=== PATIENT | female | born 2000 | race Caucasian/White ===

== ENCOUNTER 2019-08-01 22:56 | Emergency (ER) | payer OTHER, SELFPAY ==
[2019-08-01 22:57] VITALS: BP 127/61; PULSE 90; RESP 18; TEMP 36.8; O2SAT 100; BMI 21.3
--- NOTE | 2019-08-01 23:19 | ED.VISSUMM ---
- ER Visit Summary Date of Service: 08/01/19 Chief Complaint: Abdominal pain and cramping History of Present Illness: The patient is a 18 F who presents with abdominal pain and cramping the has been constant for the past 1 to 2 hours. Patient states it has been waxing and waning over the past couple days. Patient states her last menstrual period started 5 days ago and is she is currently on her menstrual period. Patient describes her pain as cramping. Patient states nothing makes it better or worse. Patient admits to nausea but denies any vomiting. Patient denies any diarrhea, melena, or hematochezia. Patient denies any dysuria or hematuria. Physical Examination: Vital signs are stable. Patient is afebrile. Patient is in no acute distress. Oral mucosa is pink and moist. Neck is supple. Trachea is midline. There is no JVD. Heart was regular rate and rhythm. Lungs are clear and equal bilaterally. Abdomen is soft. Bowel sounds are normal. There is some mild tenderness over the lower abdomen. There is no rebound or guarding noted. Cranial nerves II through XII are intact. There are no focal motor or sensory deficits noted. Test Results: CBC and comprehensive metabolic profile were obtained and were essentially within normal limits. Serum hCG was negative. Urinalysis shows leukocyte esterase of 25 with occult blood of 150. There are 5-10 red blood cells but no sign of urinary tract infection. Emergency Department Course and Treatment: Patient was given IV fluids. Patient was given a dose of Toradol here. Patient states her pain improved somewhat but was still having some pain. Patient was given a dose of morphine. Patient was instructed to follow-up with her DEVELOPMENT SPECIALIST or primary care physician in 3 to 5 days. Patient was given a prescription for Naprosyn. Patient was instructed to return if worse in any way. Patient understood and was agreeable with the plan. All questions were answered. Disposition: Discharge home Impression: Pelvic pain This note was generated with [employer] dictation software. It may contain incorrect words, spelling, and punctuation that were not noted in review of the chart prior to signing ED Disposition - Plan for ED Patient: Disposition: Home or Assisted Living Diagnosis: Pelvic pain Instructions: ABDOMINAL PAIN, Unknown Cause, (Female) Prescriptions: Naproxen [Naprosyn] 500 mg PO BID PRN #20 tab Prescription Printed Referrals: Derick Coyne MD [Primary Care Provider] - 3-5 Days
[2019-08-01] MEDS: Ketorolac 30 MG/ML Syringe IV (23:29)
[2019-08-01 23:50] LABS: Internal QC Validated? YES +Cl - CLEAR BKGD
[2019-08-01 23:51] LABS: Pregnancy, Serum, hCG Quali. NEGATIVE Negative
[2019-08-01 23:54] LABS: ALB/GLOB Ratio 0.9 RATIO (0.9-2.4); AST(SGOT) 18 U/L (15-37); Alanine Aminotransfer ALT/SGPT 23 U/L (13-56); Albumin, Serum 3.6 g/dL (3.2-5.0); Alkaline Phosphatase 67 U/L (45-117); Anion Gap 6 (5-15); BUN 14 mg/dL (7-18); Chloride 109 mmol/L (98-107); Creatinine, Serum 0.88 mg/dL (0.55-1.02); EST Glomerular Filtration Rate 87 mL/min (>60); Est Glom Filt Rate - Afr Amer 105 mL/min (>60); Estimated Creatinine Clearance 88.06 ml/min; Globulin 3.8 g/dL (2.2-4.2); Glucose 75 mg/dL (74-106); Lipase 210 U/L (73-393); Potassium 3.5 mmol/L (3.5-5.1); Protein, Total 7.4 g/dL (6.4-8.2); Sodium Level 142 mmol/L (136-145)
[2019-08-02 00:18] LABS: Absolute Lymphocyte Count 3.51 X10^3/uL (0.83-4.51); Absolute Neutrophil Count 2.5 X10^3/uL (2.0-7.7); Basophil# 0.04 X10^3/uL; Basophil% 0.6 % (0-1); Eosinophil# 0.12 X10^3/uL; Eosinophils% 1.8 % (0-5); Hematocrit 39.5 % (37-47); Hemoglobin 12.5 g/dL (12.0-15.0); Lymphocyte # 3.51 X10^3/ul (4.0); Mean Corp Hgb Conc 31.6 g/dL (32-36); Mean Corpuscular Hgb 27.4 pg (27.0-32.0); Mean Corpuscular Volume 86.6 fL (81-99); Mean Platelet Vol. 10.5 fl (6.2-12.0); Monocyte% 7.4 % (0-10); NRBC Flagged by Analyzer 0 % (0-5); Neutrophil # 2.53 X10^3/uL (2.7-7.7); Neutrophil % 37.5 % (47-70); Platelet Count 368 K/mm3 (150-450); RBC Distribution Width CV 13.8 % (11.6-14.6); RBC Distribution Width SD 43.2 fl (35.1-43.9); Red Blood Count 4.56 M/mm3 (4.2-5.4); White Blood Count 6.8 K/mm3 (4.4-11.0)
[2019-08-02 00:51] LABS: Bacteria 0 SEEN /hpf (None Seen); Mucous, Urine 0 SEEN /hpf (<or=2+); Squamous Epithelial Cells - UA 0 SEEN /hpf (5-10)
[2019-08-02 00:53] LABS: Color, Urine Yellow (Yellow); Glucose, Dipstick Normal (Normal); Ketone-Dipstick Negative (Negative); Leukocyte Esterase-Dipstick 25 /ul (Negative); Nitrite-Dipstick Negative (Negative); Occult Blood-Urine 150 /ul (Negative); Protein-Dipstick 15 mg/dl (Negative); Urine Bilirubin Dipstick Negative (Negative); Urine Clarity Sl. Cloudy (Clear); Urine Urobilinogen 1 mg/dl (Normal)
[2019-08-02 01:02] VITALS: RESP 16
[2019-08-02 01:17] LABS: Red Blood Cells-Urine 5-10 SEEN /hpf (0-5); White Blood Cells 0-5 SEEN /hpf (0-5)
[2019-08-02 01:34] VITALS: BP 131/91; PULSE 69; RESP 15; O2SAT 99
[2019-08-02] MEDS: Morphine 4 MG/ML Syringe IV (01:34)
[2019-08-02 01:59] VITALS: PULSE 69; RESP 15; O2SAT 99
== END 2019-08-02 02:01 | disposition home or self-care (01) ==
PROVIDERS: Emergency Provider Emergency Medicine; PCP Family Medicine
DX: R10.2 Pelvic and perineal pain (principal)
CPT/HCPCS: 80053; 81001; 83690; 84703; 85025; 96374; 96375; 99283; J7040; A4216

== ENCOUNTER → 2019-08-04 16:30 | Outpatient (CLI) | payer OTHER, SELFPAY ==
[2019-08-01 22:57] VITALS: BMI 21.3
--- NOTE | 2019-08-04 16:35 | US_ITS ---
STUDY: ULTRASOUND OF THE FEMALE PELVIS - COMPLETE REASON FOR EXAM: Female, 18 years old. LLQ PAIN LMP: TECHNIQUE: Transabdominal and transvaginal TECHNICAL QUALITY: Adequate. COMPARISON: None. FINDINGS: The uterus is anteverted and is in a midline position. The uterus is septate measures 6.6 x 5.2 x 2.7 cm. Normal uterine cervix. The endometrium measures 3 mm in thickness, and is hyperechoic. There is no demonstrated endometrial mass. There is no demonstrated myometrial mass. I.U.D. - The patient does not have an I.U.D. The right ovary is visualized. The right ovary measures 3.6 x 2.5 x 2.3 cm. There is no right ovarian cyst or ovarian mass. There is no visualized right adnexal mass or complex lesion. There is normal arterial and normal venous vascularity. The left ovary is visualized. The left ovary measures 3.6 x 2.7 x 2 cm. There is no left ovarian cyst or ovarian mass. There is no visualized left adnexal mass or complex lesion. There is normal arterial and normal venous vascularity. There is mild fluid in the cul-de-sac. The pre void volume of the bladder was 639 ml. US/Pelvic (Non ) IMPRESSION: Mild fluid in cul-de-sac possibly due to recent ovulation. Otherwise normal pelvic sonogram Electronically Signed: Thanh Leal MD at 19:43 EDT , Service support ,
--- NOTE | 2019-08-04 16:36 | US_ITS ---
STUDY: ULTRASOUND OF THE FEMALE PELVIS - COMPLETE REASON FOR EXAM: Female, 18 years old. LLQ PAIN LMP: TECHNIQUE: Transabdominal and transvaginal TECHNICAL QUALITY: Adequate. COMPARISON: None. FINDINGS: The uterus is anteverted and is in a midline position. The uterus is septate measures 6.6 x 5.2 x 2.7 cm. Normal uterine cervix. The endometrium measures 3 mm in thickness, and is hyperechoic. There is no demonstrated endometrial mass. There is no demonstrated myometrial mass. I.U.D. - The patient does not have an I.U.D. The right ovary is visualized. The right ovary measures 3.6 x 2.5 x 2.3 cm. There is no right ovarian cyst or ovarian mass. There is no visualized right adnexal mass or complex lesion. There is normal arterial and normal venous vascularity. The left ovary is visualized. The left ovary measures 3.6 x 2.7 x 2 cm. There is no left ovarian cyst or ovarian mass. There is no visualized left adnexal mass or complex lesion. There is normal arterial and normal venous vascularity. There is mild fluid in the cul-de-sac. The pre void volume of the bladder was 639 ml. US/Transvaginal Non- IMPRESSION: Mild fluid in cul-de-sac possibly due to recent ovulation. Otherwise normal pelvic sonogram Electronically Signed: Thanh Leal MD at 19:43 EDT , Service support ,
== END ==
PROVIDERS: PCP Family Medicine; Referring Provider Nurse Practitioner Family; Visit Provider Nurse Practitioner Family
DX: R10.2 Pelvic and perineal pain (principal)
CPT/HCPCS: 76830; 76856; 93976

== ENCOUNTER 2019-10-13 09:02 | Emergency (ER) | payer OTHER, SELFPAY ==
[2019-10-13 09:03] VITALS: BP 121/96; PULSE 102; RESP 16; TEMP 36.4; O2SAT 100; BMI 21.9
--- NOTE | 2019-10-13 09:16 | ED.VIS.GEN ---
History of Present Illness Chief Complaint: Head Injury Narrative: Patient is a 19-year-old female who presents for evaluation of a head injury. On Friday, 3 days ago she slipped on something on the floor and fell and hit the right side of her head. No loss of consciousness. No vomiting. She does have a history of prior concussions. Last night she had a headache and some nausea. Her nausea is actually resolved and currently she only complains of a mild headache. She called her primary care physician's office however as this was work-related was advised to be evaluated here. She otherwise denies recent illness. No fevers or cough. Past Medical History - Allergies and Home Meds Allergies/Adverse Reactions: Allergies No Known Allergies Allergy (Verified 10/13/19 09:02) Primary Care Physician: Derick Coyne MD [Primary Care Provider] - Past Medical History: None Smoking Status: Current every day smoker Review of Systems All systems negative except as indicated General: Denies: Fever Eyes: Reports: - - Light sensitivity. Denies: Visual changes - bilaterally ENT: Reports: - - Sound sensitivity Cardiovascular: Denies: Chest pain Respiratory: Denies: Dyspnea Gastrointestinal: Reports: Nausea. Denies: Abdominal pain, Vomiting Musculoskeletal: Denies: Myalgias Skin: Denies: Rash Neurological: Reports: Headache Physical Exam Vital Signs/Narrative: Vital Signs Temp Pulse Resp BP Pulse Ox 10/13/19 09:03 97.6 F L 102 H 16 121/96 H 100 Inital Vital Signs reviewed: Yes General: Well nourished Head: Normocephalic, - - No obvious signs of head trauma such as lacerations contusions abrasions hematoma. No raccoon eyes. No coyle sign. ENT: - - No hemotympanum Neck: Supple Cardiovascular: Regular rate Respiratory: No distress, CTA bilaterally Abdomen: Soft Skin: Normal color Neurological: Alert, Oriented x3, - - GCS of 15 with no focal or lateralizing neurological deficits. Psychological: Normal affect Diagnostic/Tx/Re-eval - Medical Decision Making Patient is young and otherwise healthy. She is not anticoagulated. Currently she only complains of mild headache. Her head injury was several days ago. She has no focal or lateralizing neurological deficits. At this point I feel significant injury such as skull fracture or intracranial hemorrhage is very unlikely and radiation risk of CT imaging likely outweighs benefit. Her symptoms are consistent with concussion. She was advised on brain rest. She understands to return for new or worsening symptoms and was advised on signs and symptoms to monitor for and was discharged home. ED Disposition - Plan for ED Patient: Disposition: Home or Assisted Living Diagnosis: Closed head injury Instructions: ED Concussion Referrals: Derick Coyne MD [Primary Care Provider] -
--- NOTE | 2019-10-13 09:32 | ED.RN ---
DISCHARGE INSTRUCTIONS GIVEN TO AND REVIEWED WITH PATIENT, PATIENT DENIES QUESTIONS OR CONCERNS AND VOICES UNDERSTANDING OF DISCHARGE INSTRUCTIONS. PT REFERRED TO [facility] FOR POST ACCIDENT DRUG SCREENING. PT AMBULATES OUT OF ROOM WITHOUT DIFFICULTY.
== END 2019-10-13 09:38 | disposition home or self-care (01) ==
LOC: ED 09:36
PROVIDERS: Emergency Provider Emergency Medicine; PCP Family Medicine
DX: S09.90XA Unspecified injury of head, initial encounter (principal); W01.0XXA Fall on same level from slipping, tripping and stumbling without subsequent striking against object, initial encounter; Z87.820 Personal history of traumatic brain injury; F17.210 Nicotine dependence, cigarettes, uncomplicated
CPT/HCPCS: 99282

== ENCOUNTER 2019-12-29 00:43 | Emergency (ER) | payer OTHER, SELFPAY ==
[2019-11-05 06:30] VITALS: BMI 21.9
[2019-12-29 00:44] VITALS: PULSE 95; RESP 16; TEMP 37; O2SAT 100; BMI 22.1
[2019-12-29 00:56] LABS: Bedside Glucose 83 mg/dL (70-110)
--- NOTE | 2019-12-29 01:00 | EKG12_ITS ---
Test Reason : NUMB/TING Blood Pressure : / mmHG Vent. Rate : 068 BPM Atrial Rate : 068 BPM P-R Int : 152 ms QRS Dur : 080 ms QT Int : 390 ms P-R-T Axes : 051 079 061 degrees QTc Int : 414 ms Normal sinus rhythm with sinus arrhythmia Normal ECG Confirmed by CONTRERAS GARCIA, SHARON ([id number]), fan mail editor GERI BORJA ([id number]) on 01/03/2020 9:20:14 AM Referred By: LUKASZ Confirmed By:SHARON CHAIREZ MD
--- NOTE | 2019-12-29 01:00 | CT_ITS ---
HISTORY: LT ARM AND JAW NUMBNESS/TINGLING, BLURRED VISION LT EYE ADDITIONAL HISTORY: None provided. COMPARISON: None EXAMINATION/TECHNIQUE: CT Head or Brain W/O Contrast Injection. Axial, coronal and sagittal images. Number of images including paperwork: 228. A radiation dose optimization technique was used for this scan. FINDINGS: BRAIN: No acute hemorrhage or mass. No definite acute infarct; MRI more sensitive. VENTRICULAR SYSTEM: No hydrocephalus. PARANASAL SINUSES AND MASTOIDS: No air-fluid level in the imaged extent. ORBITS: Unremarkable imaged extent. SKELETON AND SOFT TISSUES: Calvarium intact. ASPECTS score: Not applicable. CT/Brain/Head without Contrast IMPRESSION: No acute intracranial abnormality. Individualized dose optimization techniques were used for this CT. at 0153 Reported and signed by: Jacqueline Gallardo MD Electronically Signed: Jacqueline Gallardo MD at 1:53 EDT Tel , Service support ,
--- NOTE | 2019-12-29 01:01 | ED.VIS.HA ---
History of Present Illness Chief Complaint: Numb/Ting Informant: Patient Onset: Hours - 1 Context: Gradual, Onset, Activity - at work, [employer], grilling food Quality: Dull Location: right parietal Current Severity: Gone Maximum Severity: Mild Worsened by: n/a Relieved by: nothing in particular Associated Symptoms: Tingling, Preceding Aura - possibly -- see below, Visual Changes. Negative for: Nausea, Vomiting Injury: - - no injury Narrative: Patient is a healthy 19-year-old who was at work tonight when suddenly she started having vision disturbance in her left field of vision, both eyes. Things looked blurry and squiggly, and then eventually she lost vision in her left visual sales. She then started feeling numbness and tingling on the left lower face, and it went down into her left upper extremity, the distal half of it from the elbow down into the fingers. She did not notice any weakness, but she had stopped doing what she was doing, and told her scrum project manager who asked her to sit down, eventually an ambulance was called to bring her to the hospital. She states when walking to the ambulance, she noticed that she was limping a little but she does not remember feeling any numbness in her leg. She states that she then started getting a right parietal headache during all of that, which is resolved now. The rest of her symptoms are all improved, her vision is back to normal, and the only residual symptoms that she has right now is tingling in the left lower face. She developed no nausea or vomiting, chest pain, palpitations, syncope. No recent illnesses or injuries. No alcohol or drug use tonight. Patient presents during the national coronavirus emergency declaration/pandemic. She denies any known contact with anyone infected with COVID-19. She denies traveling out of the immediate area recently. She also denies being diagnosed with COVID-19 at any point in time. She is currently wearing a mask and wears one at work. She has had prior episodes of this numbness/tingling. It has occurred a couple times, and has been on the left lower face just like this, but without any of the other symptoms including headache. She has never been diagnosed with migraine headaches. Past Medical History - Allergies and Home Meds Allergies/Adverse Reactions: Allergies No Known Allergies Allergy (Verified 12/29/19 00:49) Primary Care Physician: Derick Coyne MD [Primary Care Provider] - Past Medical History: None Smoking Status: Current every day smoker Drugs: None Review of Systems General: Denies: Chills, Fever, Sweats Eyes: Reports: Visual changes - left. Denies: Diplopia ENT: Reports: - - No loss of taste or smell. Denies: Bilateral ear pain, Rhinorrhea, Sore throat Cardiovascular: Denies: Chest pain, Palpitations Respiratory: Denies: Dyspnea, Cough, Dyspnea on exertion Gastrointestinal: Denies: Abdominal pain, Nausea, Vomiting, Diarrhea, Melena, Hematochezia Genitourinary: Denies: Dysuria, Hematuria, Frequency Musculoskeletal: Denies: Myalgias, Neck pain, Back pain, Extremity Pain Skin: Denies: Rash, Wounds Neurological: Reports: Headache, Parasthesia, Numbness Physical Exam Vital Signs/Narrative: Vital Signs Temp Pulse Resp Pulse Ox 12/29/19 00:44 98.6 F 95 16 100 Inital Vital Signs reviewed: Yes General: Well nourished, Well developed, - - Well-appearing no distress Head: NC, AT. Negative for: Temporary Artery Tenderness, Vesicular Rash, Sinus Tenderness Eyes: Perrl, EOMI ENT: Moist mucous membranes, No rhinorrhea Neck: Supple, No Lymphadenopathy, Nontender, No Meningismus Cardiovascular: Regular rate, Regular rhythm, No murmurs Respiratory: No distress, CTA bilaterally, Chest nontender Abdomen: Soft, Nontender, Nondistended, Normal bowel sounds Back: Nontender, Normal Inspection Extremities: Nontender, No edema Skin: Normal color, No rash, No Trauma Neuro: Alert, Oriented x3, Cranial nerves II-XII grossly intact, Normal Strength, Normal Sensation - Except for mild subjective decrease in sensation left lower face, Normal Gait, - - Normal [id number] and [id number] bilaterally Psychological: Normal affect, Normal Mood - NIH Stroke Scale 1a Level of Consciousness: 0 1b LOC Questions (Score 2 if aphasic/stupor): 0 1c LOC Commands (Only score 1st attempt): 0 2 Best Gaze (If aphasic, use reflexive mvmts.): 0 3 Visual: 0 4 Facial Palsy: 0 5 Motor Arm Right (UN = amputation/fusion): 0 5 Motor Arm Left: 0 6 Motor Leg Right: 0 6 Motor Leg Left: 0 7 Limb ataxia (Only + if out of proportion): 0 8 Sensory (Aphasia/stupor=0 or 1, coma=2): 1 9 Best Language: 0 10 Dysarthria (mute, coma=2, intubated=UN): 0 11 Extinction and Inattention (only scored if +): 0 Total Score: 1 Diagnostic/Tx/Re-eval Impressions Brain CT 12/29/19 01:00 IMPRESSION: No acute intracranial abnormality. Individualized dose optimization techniques were used for this CT. at 0153 Reported and signed by: Jacqueline Gallardo MD Electronically Signed: Jacqueline Gallardo MD at 1:53 EDT Tel , Service support , 12/29/19 01:00 Brain/Head without Contrast [CT] Stat Laboratory Results 12/29/19 12/29/19 12/29/19 00:50 01:10 01:10 WBC 7.2 RBC 4.49 Hgb 12.4 Hct 39.6 MCV 88.2 MCH 27.6 MCHC 31.3 L RDW Std Deviation 42.8 RDW Coeff of Gigi 13.3 Plt Count 321 MPV 10.5 Immature Gran % (Auto) 0.100 Neut % (Auto) 59.7 Lymph % (Auto) 30.9 Grimes % (Auto) 7.8 Eos % (Auto) 1.2 Baso % (Auto) 0.3 Absolute Neuts (auto) 4.3 Absolute Lymphs (auto) 2.23 Nucleated RBC % 0 Sodium 142 Potassium 4.1 Chloride 112 H Carbon Dioxide 26.0 Anion Gap 4 L BUN 12 Creatinine 0.80 Estim Creat Clear Calc 96.06 Est GFR (MDRD) Af Amer 116 Est GFR (MDRD) Non-Af 96 BUN/Creatinine Ratio 15.0 Glucose 83 Calcium 8.9 POC Glucose 83 - Medical Decision Making I did not call stroke team in this patient because I do not think that an acute ischemic stroke is the likely etiology here. I think this is most likely a migraine with prodromal neurologic symptoms. CT was performed, it is negative. She was given Toradol, Reglan, and monitored. The tingling resolved. On reevaluation she feels well, she states she has a mild right retro-orbital discomfort/headache, but she feels well and without nausea/vomiting and all of her neurologic symptoms resolved. I feel she can safely be discharged home at this time, I will write her off of the rest of her shift at work, I do not think this had anything to do with the chemical exposure, or work-related injury, but I think she can safely follow-up with neurology as an outpatient, they may want to do an MRI or other studies, which I feel can safely be obtained as an outpatient. I discussed this with the patient she is comfortable with that plan. Of note, she states that her dad had a brain tumor, the details are unknown, certainly an MRI would be a better test for that which we discussed, but the CT shows no major areas of mass-effect or edema. ED Disposition - Plan for ED Patient: Disposition: Home or Assisted Living Diagnosis: Migraine headache with aura Instructions: ED, Migraine (Classical) Referrals: Peterson Moon MD [STAFF PHYSICIAN] - As soon as possible (Call for appointment)
[2019-12-29] MEDS: Metoclopramide 10 MG/2 ML Vial 5 MG IV (01:15)
[2019-12-29 01:16] LABS: Absolute Lymphocyte Count 2.23 X10^3/uL (0.83-4.51); Absolute Neutrophil Count 4.3 X10^3/uL (2.0-7.7); Basophil# 0.02 X10^3/uL; Basophil% 0.3 % (0-1); Eosinophil# 0.09 X10^3/uL; Eosinophils% 1.2 % (0-5); Hematocrit 39.6 % (37-47); Hemoglobin 12.4 g/dL (12.0-15.0); Lymphocyte # 2.23 X10^3/ul (4.0); Lymphocyte % 30.9 % (19-41); Mean Corp Hgb Conc 31.3 g/dL (32-36); Mean Corpuscular Hgb 27.6 pg (27.0-32.0); Mean Corpuscular Volume 88.2 fL (81-99); Mean Platelet Vol. 10.5 fl (6.2-12.0); Monocyte# 0.56 X10^3/uL; Monocyte% 7.8 % (0-10); NRBC Flagged by Analyzer 0 % (0-5); Neutrophil % 59.7 % (47-70); Platelet Count 321 K/mm3 (150-450); RBC Distribution Width CV 13.3 % (11.6-14.6); RBC Distribution Width SD 42.8 fl (35.1-43.9); Red Blood Count 4.49 M/mm3 (4.2-5.4); White Blood Count 7.2 K/mm3 (4.4-11.0)
[2019-12-29] MEDS: Ketorolac 30 MG/ML Syringe IV (01:16)
[2019-12-29 01:29] LABS: Anion Gap 4 (5-15); BUN 12 mg/dL (7-18); Calcium,Total 8.9 mg/dL (8.5-10.1); Chloride 112 mmol/L (98-107); EST Glomerular Filtration Rate 96 mL/min (>60); Est Glom Filt Rate - Afr Amer 116 mL/min (>60); Estimated Creatinine Clearance 96.06 ml/min; Glucose 83 mg/dL (74-106); Potassium 4.1 mmol/L (3.5-5.1); Sodium Level 142 mmol/L (136-145)
[2019-12-29 02:14] VITALS: BP 115/69; PULSE 68; RESP 20; O2SAT 100
== END 2019-12-29 02:15 | disposition home or self-care (01) ==
PROVIDERS: Emergency Provider Emergency Medicine; PCP Family Medicine
DX: G43.109 Migraine with aura, not intractable, without status migrainosus (principal); F17.200 Nicotine dependence, unspecified, uncomplicated
CPT/HCPCS: 70450; 80048; 82962; 85025; 93005; 96374; 96375; 99285; A4216

== ENCOUNTER → 2020-02-22 09:23 | Outpatient (CLI) | payer OTHER, SELFPAY ==
[2020-02-15 11:18] VITALS: BMI 22.1
--- NOTE | 2020-02-22 09:24 | MRI_ITS ---
STUDY: MRI BRAIN WITH AND WITHOUT CONTRAST REASON FOR EXAM: Female, 19 years old. Migraine, left sided numbness/tingling TECHNIQUE: Standardized multiplanar fat and water weighted pulse sequences were obtained. IV Dotarem 11ml was administered for the contrast portion of the examination. COMPARISON: CT 12/29/2019 FINDINGS: Normal size of the ventricles and extra-axial spaces for the patient''s age. Normal white matter tracts of the supratentorial brain. There is no evidence for recent intracranial ischemia or other cause of cytotoxic edema on diffusion weighted imaging (DWI). Normal T2* images of the brain without demonstrated susceptibility artifact. There is no demonstrated hemosiderin stain. Normal bilateral basal ganglia. Normal thalami. There is no extra-axial fluid accumulation. Normal flow voids within the major intracranial circulation suggesting patency by spin echo criteria. Normal venous enhancement. There is no enhancing intra-axial or extra-axial abnormality. Normal sella turcica, pituitary gland, infundibular stalk, optic chiasm and hypothalamus. Normal tectal plate and pineal gland. Normal midbrain, ashu and medulla. Normal cerebellum. Normal basal cisterns. Normal bilateral temporal bones. Normal bilateral internal auditory canals. No demonstrated orbital abnormality, within the constraints of a routine brain study. Normal visualized paranasal sinuses. Normal calvarium and skull base. Normal visualized soft tissue structures. Normal visualized upper cervical spine. MRI/Brain W/WO Contrast IMPRESSION: Normal unenhanced and enhanced MRI of the brain. Electronically Signed: Fuad Light MD at 13:52 EDT Tel , Service support ,
== END ==
PROVIDERS: PCP Family Medicine; Referring Provider Psychiatry & Neurology Neurology; Visit Provider Psychiatry & Neurology Neurology
DX: G43.909 Migraine, unspecified, not intractable, without status migrainosus (principal)
CPT/HCPCS: 70553; A9575

== ENCOUNTER → 2020-08-17 16:44 | Outpatient (CLI) | payer OTHER, SELFPAY ==
[2020-08-17 18:44] LABS: Free T3 2.6 pg/mL (2.18-3.98); T4 Free Direct 1.27 ng/dL (0.76-1.46)
[2020-08-18 09:31] LABS: Anion Gap 8 (5-15); BUN 8 mg/dL (7-18); BUN/Creat Ratio 10.2 RATIO (10-20); Calcium,Total 9.3 mg/dL (8.5-10.1); Chloride 106 mmol/L (98-107); Creatinine, Serum 0.79 mg/dL (0.55-1.02); EST Glomerular Filtration Rate 97 mL/min (>60); Est Glom Filt Rate - Afr Amer 118 mL/min (>60); Glucose 74 mg/dL (74-106); Iron 60 ug/dL (50-170); Potassium 3.6 mmol/L (3.5-5.1); Sodium Level 140 mmol/L (136-145); Thyroid Stim Hormone (TSH) 0.91 uIU/mL (0.358-3.74)
[2020-08-18 12:26] LABS: Vitamin B12 519 pg/mL (211-911); Vitamin D,25 Hydroxy 17.2 ng/mL
== END ==
PROVIDERS: PCP Family Medicine; Referring Provider Family Medicine; Visit Provider Family Medicine
DX: R53.83 Other fatigue (principal); R63.4 Abnormal weight loss
CPT/HCPCS: 36415; 80048; 82306; 82607; 83540; 84439; 84443; 84481

== ENCOUNTER → 2020-08-22 15:38 | Outpatient (CLI) | payer OTHER, SELFPAY ==
[2020-08-22 17:31] LABS: Hematocrit 41.2 % (37-47); Hemoglobin 12.6 g/dL (12.0-15.0); Mean Corp Hgb Conc 30.6 g/dL (32-36); Mean Corpuscular Hgb 26.9 pg (27.0-32.0); Mean Platelet Vol. 10.9 fl (6.2-12.0); Platelet Count 401 K/mm3 (150-450); RBC Distribution Width CV 13.5 % (11.6-14.6); RBC Distribution Width SD 43.7 fl (35.1-43.9); Red Blood Count 4.68 M/mm3 (4.2-5.4); White Blood Count 5.4 K/mm3 (4.4-11.0)
== END ==
PROVIDERS: PCP Family Medicine; Referring Provider Family Medicine; Visit Provider Family Medicine
DX: R53.83 Other fatigue (principal)
CPT/HCPCS: 85027

== ENCOUNTER → 2020-12-22 17:49 | Outpatient (CLI) | payer OTHER, SELFPAY ==
[2020-12-22 20:02] LABS: Probe Check PASS; Specimen Processing Control PASS
== END ==
PROVIDERS: PCP Family Medicine; Visit Provider Family Medicine
DX: Z20.822 Contact with and (suspected) exposure to COVID-19 (principal)
CPT/HCPCS: 87635; U0005; U0003

== ENCOUNTER 2021-05-29 16:47 | Outpatient (CLI) | payer OTHER, SELFPAY | END 2021-05-29 23:59 | disposition short-term general hospital (02) | PROVIDERS: PCP Family Medicine; Visit Provider Nurse Practitioner Family | DX: U07.1 COVID-19 (principal) | CPT/HCPCS: 87635; U0003 ==

== ENCOUNTER → 2021-10-18 | Outpatient (CLI) | payer OTHER, SELFPAY | END | disposition home or self-care (01) | PROVIDERS: PCP Family Medicine; Referring Provider Family Medicine; Visit Provider Family Medicine | DX: U07.1 COVID-19 (principal) | CPT/HCPCS: 87635; U0003; U0005 ==

== ENCOUNTER 2021-11-04 03:07 | Emergency (ER) | payer BC, SELFPAY ==
[2021-11-04 03:07] VITALS: BP 113/81; PULSE 99; RESP 18; TEMP 36.8; O2SAT 100; BMI 21.4
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
== END 2021-11-04 03:27 | disposition home or self-care (01) ==
PROVIDERS: Emergency Provider Emergency Medicine; PCP Family Medicine; Visit Provider Emergency Medicine
DX: S09.90XA Unspecified injury of head, initial encounter (principal); F17.210 Nicotine dependence, cigarettes, uncomplicated; F32.A Depression, unspecified; Z79.899 Other long term (current) drug therapy; Z86.16 Personal history of COVID-19; Y04.8XXA Assault by other bodily force, initial encounter
CPT/HCPCS: 99284

== ENCOUNTER → 2022-07-11 | Outpatient (CLI) | payer OTHER, SELFPAY ==
[2022-07-24 13:02] LABS: HPV APTIMA, High Risk Positive (Negative)
[2022-07-24 22:47] LABS: HPV Reflexed? YES, CHARGE PATIENT
== END | disposition home or self-care (01) ==
PROVIDERS: PCP Family Medicine; Referring Provider Registered Nurse; Visit Provider Registered Nurse
DX: Z00.00 Encounter for general adult medical examination without abnormal findings (principal)
CPT/HCPCS: 87624; 88175; G0145

== ENCOUNTER → 2023-08-25 | Outpatient (CLI) | payer OTHER, SELFPAY ==
[2023-08-28 06:09] LABS: Chlamydia By Nucleic Acid AMP Negative (Negative); Gonococcus By Nucleic Acid AMP Negative (Negative)
[2023-08-29 16:44] LABS: HPV Reflexed? NOT INDICATED
== END | disposition home or self-care (01) ==
LOC: LABSPEC 16:51
PROVIDERS: PCP Family Medicine; Referring Provider Nurse Practitioner Women's Health; Visit Provider Nurse Practitioner Women's Health
DX: Z11.3 Encounter for screening for infections with a predominantly sexual mode of transmission (principal); Z12.4 Encounter for screening for malignant neoplasm of cervix
CPT/HCPCS: 87491; 87591; 88175; G0145

== ENCOUNTER → 2024-06-29 | Outpatient (CLI) | payer BC, SELFPAY ==
[2024-06-29 12:25] LABS: Absolute Neutrophil Count 2.8 X10^3/uL (2.0-7.7); Basophil# 0.05 X10^3/uL; Basophil% 0.9 % (0-1); Eosinophil# 0.06 X10^3/uL; Eosinophils% 1.1 % (0-5); Hemoglobin 13.9 g/dL (12.0-15.0); Mean Corp Hgb Conc 32.3 g/dL (32-36); Mean Corpuscular Hgb 28.8 pg (27.0-32.0); Mean Corpuscular Volume 89.2 fL (81-99); Mean Platelet Vol. 10.5 fl (6.2-12.0); Monocyte# 0.37 X10^3/uL; Monocyte% 6.7 % (0-10); NRBC Flagged by Analyzer 0 % (0-5); Neutrophil # 2.81 X10^3/uL (2.7-7.7); Neutrophil % 51.1 % (47-70); Platelet Count 423 K/mm3 (150-450); RBC Distribution Width CV 13.2 % (11.6-14.6); RBC Distribution Width SD 43.3 fl (35.1-43.9); Red Blood Count 4.82 M/mm3 (4.2-5.4); White Blood Count 5.5 K/mm3 (4.4-11.0)
[2024-06-29 12:39] LABS: Anion Gap 7 (5-15); BUN 8 mg/dL (7-18); Calcium,Total 9.4 mg/dL (8.5-10.1); Chloride 109 mmol/L (98-107); Cholesterol 142 mg/dL (200); EST Glomerular Filtration Rate 92 mL/min (>60); Est Glom Filt Rate - Afr Amer 112 mL/min (>60); Glucose 82 mg/dL (74-106); High Density Lipoprotein 57 mg/dL; Magnesium 2.3 mg/dL (1.6-2.6); Potassium 3.6 mmol/L (3.5-5.1); Sodium Level 140 mmol/L (136-145); Triglycerides 58 mg/dL; Very Low Density Lipoprotein 12 mg/dL (5-40)
[2024-06-29 12:56] LABS: Vitamin D,25 Hydroxy 8.8 ng/mL
== END | disposition home or self-care (01) ==
LOC: MTLAB 10:14
PROVIDERS: PCP Family Medicine; Referring Provider Family Medicine; Visit Provider Family Medicine
DX: I49.9 Cardiac arrhythmia, unspecified (principal); F41.9 Anxiety disorder, unspecified; Z13.220 Encounter for screening for lipoid disorders
CPT/HCPCS: 36415; 80048; 80061; 82306; 83735; 84443; 85025

== ENCOUNTER 2025-05-06 13:56 | Emergency (ER) | payer BC, SELFPAY ==
[2025-05-06] VITALS (14 sets, daily range): BP systolic 94–133; BP diastolic 67–91; PULSE 73–111; RESP 14–20; TEMP 36.6–36.8; O2SAT 97–100; BMI 22.4
--- NOTE | 2025-05-06 14:49 | EKG12_ITS ---
Test Reason : CP Blood Pressure : */* mmHG Vent. Rate : 85 BPM Atrial Rate : 85 BPM P-R Int : 162 ms QRS Dur : 78 ms QT Int : 356 ms P-R-T Axes : 51 89 50 degrees QTcB Int : 423 ms Normal sinus rhythm Normal ECG Confirmed by JOSEPHINE GARCIA, SETH ([id number]), film editor QIANA ACUNA ([id number]) on 05/09/2025 6:48:44 AM Referred By: YOGESH/NATHALIE Confirmed By: SETH BURTON MD
--- NOTE | 2025-05-06 14:52 | EX.ED.DYSGE1 ---
HPI <Dr. Osbaldo Islas MD - Last Filed: 05/06/25 17:16> History of Present Illness Chief Complaint: Palpitations Informant: patient and spouse/S.O. Narrative Narrative: Patient is a 24-year-old female presenting with increased frequency of heart palpitations today. - Reports palpitations have been occurring approximately once a week for the past year, but have increased in frequency this week, occurring multiple times a day. - Today, palpitations have been occurring almost every hour. - Describes palpitations as feeling like skipped beats and/or a brief flutter, sometimes accompanied by lightheadedness, but denies near-syncope. - Occasionally experiences a brief pinching sensation in the chest during palpitations, but denies crushing chest pain or pressure. - No recent leg pain or swelling. - No recent illness or cold symptoms. - Reports episodes of tachycardia while at rest (separate, not today), with heart rate reaching 134-156 bpm. 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 - Has been taking Vyvanse for ADHD for two years; also uses albuterol for asthma and has a Nexplanon implant. Has been reducing caffeine intake since the beginning of the year. Denies illicit drug use. PFSH <Dr. Osbaldo Islas MD - Last Filed: 05/06/25 17:16> [facility] Medical History History of UTI History of frequent headaches Asthma Anemia Depression Home Medications ?Medication ?Instructions ?Recorded ?Last Taken ?Type albuterol sulfate 90 mcg/actuation 2 puff inhalation Q6H PRN 08/25/23 Unknown History aerosol inhaler shortness of breath or wheezing etonogestrel 68 mg subdermal 1 implant subdermal ONCE 08/25/23 Unknown History implant (Nexplanon) lisdexamfetamine 10 mg capsule 10 mg PO DAILY 08/25/23 Unknown History (Vyvanse) cholecalciferol (vitamin D3) 125 125 mcg PO DAILY 05/06/25 Unknown History mcg (5,000 unit) capsule Allergy/AdvReac Type Severity Reaction Status Date / Time shellfish derived Allergy Unknown Unknown Verified 05/06/25 13:58 Family History Grandfather Anesthesia complication Arthritis Bowel disease Diabetes Hypertension High cholesterol Grandmother Anesthesia complication Arthritis Hypertension High cholesterol History of ulcer disease Uncle Anxiety Mother Anxiety Bowel disease Depression Aunt Anxiety History of blood transfusion Bowel disease Cervical cancer Depression Hormone disorder Ovarian cancer Sister Asthma Surgical History Hx of tonsillectomy Social History Smoking Status: Former smoker Tobacco: How many years used: 5 Electronic Cigarette Use: with nicotine second hand exposure: Yes alcohol intake: current alcohol intake frequency: other Alcohol type: beer and hard liquor substance use type: does not use ROS <Dr. Osbaldo Islas MD - Last Filed: 05/06/25 17:16> ROS ED Constitutional Constitutional ED: Denies chills or fever(s) Eyes Eyes: Denies change in vision or diplopia ENT ENT ED: Denies rhinorrhea or sore throat Cardiovascular Cardiovascular: Reports chest pain, lightheadedness and palpitations; Denies orthopnea or syncope Respiratory/Chest Respiratory/Chest: Denies cough, dyspnea or orthopnea Gastrointestinal Gastrointestinal: Denies abdominal pain, diarrhea, nausea or vomiting Genitourinary Genitourinary ED: Denies dysuria or hematuria Musculoskeletal Musculoskeletal: Denies back pain or neck pain Integumentary Denies abscess or rash Neurologic Neurologic: Denies headache(s), paresthesias or weakness Psychiatric Psychiatric: Denies suicidal thoughts EXAM <Dr. Osbaldo Islas MD - Last Filed: 05/06/25 17:16> Physical Exam Const Vital Signs: 05/06/25 13:56 05/06/25 14:12 05/06/25 14:56 Temperature 98.2 F Temperature Source Oral Pulse Rate 111 H 90 Respiratory Rate 18 16 Respiratory Effort Normal Non-Labored Blood Pressure 133/91 H 119/81 H Blood Pressure Mean 105 93 Pulse Ox 99 99 Oxygen Delivery Method Room Air 05/06/25 14:58 05/06/25 15:00 05/06/25 15:14 Temperature Temperature Source Pulse Rate 83 Respiratory Rate Respiratory Effort Blood Pressure 119/81 H Blood Pressure Mean 93 Pulse Ox 100 Oxygen Delivery Method Room Air 05/06/25 15:15 05/06/25 15:30 05/06/25 15:45 Temperature Temperature Source Pulse Rate 85 79 80 Respiratory Rate 16 14 19 H Respiratory Effort Blood Pressure 114/80 Blood Pressure Mean 91 Pulse Ox 100 97 100 Oxygen Delivery Method 05/06/25 16:00 05/06/25 16:15 05/06/25 16:30 Temperature Temperature Source Pulse Rate 76 73 74 Respiratory Rate 18 19 H 17 Respiratory Effort Blood Pressure 110/78 99/69 Blood Pressure Mean 89 79 Pulse Ox 100 100 Oxygen Delivery Method 05/06/25 16:45 05/06/25 17:00 05/06/25 17:11 Temperature Temperature Source Pulse Rate 87 80 82 Respiratory Rate 20 H 17 16 Respiratory Effort Blood Pressure 94/77 Blood Pressure Mean 85 Pulse Ox 100 100 100 Oxygen Delivery Method Positive well nourished and well developed General Appearance ED: well developed and NAD HEENT Reports moist mucous membranes normocephalic and atraumatic Eyes PERRL and EOMs intact bilaterally Neck full ROM and supple Resp normal respiratory effort and clear to auscultation bilaterally Cardio regular rate, regular rhythm and no murmurs GI non-tender and non-distended Auscultation: normoactive bowel sounds Palpation: soft Back/Spine no CVA tenderness General Back: other FROM Extremity normal to inspection General Extremety ED: Negative for edema, pulses abnormal or tenderness General Extremity: Negative for edema or pulses abnormal Neuro oriented x3, CN's II-XII intact bilaterally and no sensory deficits noted Sensorium / Orientation: awake and alert Motor Exam: strength 5/5 throughout Skin no rashes or lesions noted and no wounds <Dr. Hyu Hartmann, DO - Last Filed: 05/06/25 17:48> Physical Exam Const Vital Signs: 05/06/25 13:56 05/06/25 14:12 05/06/25 14:56 Temperature 98.2 F Temperature Source Oral Pulse Rate 111 H 90 Respiratory Rate 18 16 Respiratory Effort Normal Non-Labored Blood Pressure 133/91 H 119/81 H Blood Pressure Mean 105 93 Pulse Ox 99 99 Oxygen Delivery Method Room Air 05/06/25 14:58 05/06/25 15:00 05/06/25 15:14 Temperature Temperature Source Pulse Rate 83 Respiratory Rate Respiratory Effort Blood Pressure 119/81 H Blood Pressure Mean 93 Pulse Ox 100 Oxygen Delivery Method Room Air 05/06/25 15:15 05/06/25 15:30 05/06/25 15:45 Temperature Temperature Source Pulse Rate 85 79 80 Respiratory Rate 16 14 19 H Respiratory Effort Blood Pressure 114/80 Blood Pressure Mean 91 Pulse Ox 100 97 100 Oxygen Delivery Method 05/06/25 16:00 05/06/25 16:15 05/06/25 16:30 Temperature Temperature Source Pulse Rate 76 73 74 Respiratory Rate 18 19 H 17 Respiratory Effort Blood Pressure 110/78 99/69 Blood Pressure Mean 89 79 Pulse Ox 100 100 Oxygen Delivery Method 05/06/25 16:45 05/06/25 17:00 05/06/25 17:11 Temperature Temperature Source Pulse Rate 87 80 82 Respiratory Rate 20 H 17 16 Respiratory Effort Blood Pressure 94/77 Blood Pressure Mean 85 Pulse Ox 100 100 100 Oxygen Delivery Method [facility] <Dr. Osbaldo Islas MD - Last Filed: 05/06/25 17:16> [facility] Narrative Medical decision making narrative: Assessment: The patient is a 24-year-old female with PMH of ADHD and asthma presenting for four-year history of intermittent palpitations, markedly more frequent this morning, associated with brief pinching left-sided chest discomfort and occasional light-headedness but no syncope. Current ED evaluation shows a completely normal EKG, two serial troponins that remained flat, normal D-dimer, normal CBC and BMP, and a normal chest X-ray. Several hours of continuous telemetry revealed no dysrhythmias or ectopy. Given these normal studies and absence of recurrent symptoms in the ED, benign atrial or ventricular ectopy?potentially stimulant-related from Vyvanse?is the most likely explanation; life-threatening dysrhythmia, acute coronary syndrome, and pulmonary embolism are ruled out by today?s testing. Plan: - Continuous cardiac monitoring during ED stay; no ectopy or dysrhythmia observed. - Reviewed results and clinical impression with patient; answered questions. - Advised discontinuation of ED monitoring and discharge home with return precautions. - Recommended outpatient follow-up with primary care physician and possible repeat event or Holter monitor; discuss Vyvanse possible contribution to symptoms. Diagnostics: - EKG interpreted: normal sinus rhythm, no ST-T abnormalities, no delta waves. Independently interpreted by Osbaldo caicedo. - Telemetry strip review (several hours): no ectopy, no dysrhythmia. - Labs: Troponin x2 flat/decreasing slightly nonspecifically elevated. - Labs: CBC normal. - Labs: BMP normal. - D-dimer normal. - Chest X-ray: normal. Reevaluations: - After several hours of observation, patient remained asymptomatic with normal telemetry and vitals. Portions of this note were generated using voice recognition software ([employer]). I have reviewed the contents and every effort has been made to ensure accuracy; however, inadvertent errors in grammar, spelling, punctuation, or word choice may occur, that were not noted before signing the document and should not alter the intended clinical meaning. Lab Data Attestation: I reviewed the patient's lab results. Labs: Laboratory Results - last 24 hr 05/06/25 05/06/25 15:00 16:50 WBC 7.1 RBC 4.34 Hgb 12.1 Hct 36.5 L MCV 84.1 MCH 27.9 MCHC 33.2 RDW Std Deviation 43.1 RDW Coeff of Gigi 13.9 Plt Count 317 MPV 9.8 Immature Gran % (Auto) 0.100 Neut % (Auto) 61.5 Lymph % (Auto) 29.7 Perkins % (Auto) 7.9 Eos % (Auto) 0.4 Baso % (Auto) 0.4 Absolute Neuts (auto) 4.4 Absolute Lymphs (auto) 2.10 Nucleated RBC % 0 D-Dimer Quant (PE/DVT) < 0.27 L Sodium 137 Potassium 3.5 Chloride 105 Carbon Dioxide 24.2 Anion Gap 8 BUN 7 Creatinine 0.69 L Estim Creat Clear Calc 106.69 Est GFR (MDRD) Non-Af 123 BUN/Creatinine Ratio 10.2 Glucose 101 H Calcium 9.0 Troponin T High Sens 20 H Troponin T Hi Sens 2 Hr < 6 Radiography Diagnostic Testing: Clinical Impression(s) from Imaging Studies Chest X-Ray 05/06/25 15:08 IMPRESSION: No acute cardiopulmonary process. Reading Location: [id number] Rhythm Strip Rhythm Strip: Sinus Rhythm Rate: 80 Ectopy: None EKG Initial EKG: Attestation: I personally reviewed and interpreted this EKG as follows: Interpretation: Sinus Rhythm and No Acute Injury Pattern Comments: Nml axis & intervals; nml EKG <Dr. Huy Hartmann, DO - Last Filed: 05/06/25 17:48> MDM Lab Data Labs: Laboratory Results - last 24 hr 05/06/25 05/06/25 15:00 16:50 WBC 7.1 RBC 4.34 Hgb 12.1 Hct 36.5 L MCV 84.1 MCH 27.9 MCHC 33.2 RDW Std Deviation 43.1 RDW Coeff of Gigi 13.9 Plt Count 317 MPV 9.8 Immature Gran % (Auto) 0.100 Neut % (Auto) 61.5 Lymph % (Auto) 29.7 Perkins % (Auto) 7.9 Eos % (Auto) 0.4 Baso % (Auto) 0.4 Absolute Neuts (auto) 4.4 Absolute Lymphs (auto) 2.10 Nucleated RBC % 0 D-Dimer Quant (PE/DVT) < 0.27 L Sodium 137 Potassium 3.5 Chloride 105 Carbon Dioxide 24.2 Anion Gap 8 BUN 7 Creatinine 0.69 L Estim Creat Clear Calc 106.69 Est GFR (MDRD) Non-Af 123 BUN/Creatinine Ratio 10.2 Glucose 101 H Calcium 9.0 Troponin T High Sens 20 H Troponin T Hi Sens 2 Hr < 6 Radiography Diagnostic Testing: Clinical Impression(s) from Imaging Studies Chest X-Ray 05/06/25 15:08 IMPRESSION: No acute cardiopulmonary process. Reading Location: [facility] Treatment and Re-Evaluation :: Care of the patient was turned over to ar pending repeat troponin. Repeat troponin was reviewed and was less than 6. Patient was instructed to follow-up with her primary care physician. Patient was instructed to return if worse in any way. Patient understood and was agreeable with the plan. All questions were answered. Discharge Plan Triage Chief Complaint: Palpitations ED Provider: Osbaldo Islas Dx/Rx/DC Orders Clinical Impression: Palpitations, Left-sided chest pain Instructions: Understanding Heart Palpitations, Arrhythmias Prescriptions: No Action Nexplanon 68 mg implant 1 implant subdermal ONCE Rx Instructions: as a single dose lisdexamfetamine [Vyvanse] 10 mg capsule 10 mg PO DAILY albuterol sulfate 90 mcg/actuation HFA aerosol inhaler 2 puff inhalation Q6H PRN (Reason: shortness of breath or wheezing) cholecalciferol (vitamin D3) 125 mcg (5,000 unit) capsule 125 mcg PO DAILY Primary Care Provider: Darrius Coyne Referrals: Darrius Coyne MD [Primary Care Provider, Family Practice] - As soon as possible Print Language: Latvian Disposition Disposition: Home, Self Care
[2025-05-06 15:08] LABS: Hematocrit 36.5 % (37-47); Hemoglobin 12.1 g/dL (12.0-15.0); Immature Granulocytes Count 0.010 X10^3/uL (0.0-0.0); Mean Corp Hgb Conc 33.2 g/dL (32-36); Mean Corpuscular Volume 84.1 fL (81-99); Mean Platelet Vol. 9.8 fl (6.2-12.0); NRBC Flagged by Analyzer 0 % (0-5); Platelet Count 317 K/mm3 (150-450); RBC Distribution Width CV 13.9 % (11.6-14.6); RBC Distribution Width SD 43.1 fl (35.1-43.9); Red Blood Count 4.34 M/mm3 (4.2-5.4); White Blood Count 7.1 K/mm3 (4.4-11.0)
--- NOTE | 2025-05-06 15:08 | RAD_ITS ---
PROCEDURE: CHEST 1 VIEW (PORTABLE) 05/06/2025 REASON FOR EXAM: CHEST PAIN TECHNIQUE: Frontal view of the chest. COMPARISON: None FINDINGS: Support/devices:None. Heart:Normal in size. Mediastinum: Unremarkable Lungs: Clear. No consolidation. No mass. Pleura: No pneumothorax. No pleural effusion. Osseous structures: No fracture. Soft tissues: No soft tissue abnormality. RAD/Chest 1 View (Portable) IMPRESSION: No acute cardiopulmonary process. Reading Location: [facility]
[2025-05-06 15:34] LABS: Anion Gap 8 (5-15); BUN 7 mg/dL (4-19); BUN/Creat Ratio 10.2 RATIO (10-20); Calcium,Total 9.0 mg/dL (7.6-11.0); Carbon Dioxide 24.2 mmol/L (21.0-32.0); Chloride 105 mmol/L (98-108); Estimated Creatinine Clearance 106.69 ml/min (50-250); Glucose 101 mg/dL (70-99); Potassium 3.5 mmol/L (3.3-5.1); Troponin T High Sensitivity 20 ng/L (<=14)
[2025-05-06 15:42] LABS: D-Dimer Quantitative (DVT/PE) < 0.27 FEU/ug/m (0.27-0.49)
[2025-05-06 17:43] LABS: Troponin T High Sens 2 HR < 6 ng/L (<=14)
== END 2025-05-06 18:02 | disposition home or self-care (01) ==
PROVIDERS: Emergency Provider Emergency Medicine; PCP Family Medicine; Visit Provider Emergency Medicine
DX: R00.2 Palpitations (principal); R07.89 Other chest pain; Z87.891 Personal history of nicotine dependence
CPT/HCPCS: 71045; 80048; 84484; 85025; 85379; 93005; 99284; A4216